=== PATIENT | female | born 1985 | race Caucasian/White ===

== ENCOUNTER 2019-10-25 19:36 | Emergency (ER) | payer BC ==
[~2019-10-25] VITALS: Ht 160 cm; Wt 102.3 kg
[~2019-10-25 19:36] MED LIST: ASPIRIN 81M81 MG/TA2 PO; COREG 6.256.25 MG/TA PO; VASOTEC 5MG5 MG/TAB PO; XANAX .25M0.25 MG/TA PO
[2019-10-25 20:26] LABS: COLLECTION METHOD CLEAN CATCH
[2019-10-25 20:33] LABS: PH 6 (5-8); SQUAMOUS EPITHELIAL 0-2 /hpf; URINE APPEARANCE Clear; URINE BACTERIA None Seen /hpf; URINE BILIRUBIN Negative (NEGATIVE); URINE BLOOD 2+ (NEGATIVE); URINE COLOR Straw; URINE GLUCOSE Negative (NEGATIVE); URINE KETONE Negative (NEGATIVE); URINE LEUKOCYTE ESTERASE Negative (NEGATIVE); URINE NITRATE Negative (NEGATIVE); URINE PROTEIN(semi-quant) Negative (NEGATIVE); URINE RBC 0-2 /hpf; URINE UROBILINOGEN Negative (NEGATIVE)
[2019-10-25 20:56] LABS: BASO # 0.1 (0.0-0.2); BASO % 0.5 % (0.0-2.0); EOS # 0.3 (0.0-0.7); EOS % 2.6 % (0-4.0); GRAN % 74.4 % (42.2-75.2); HEMATOCRIT 44.9 % (37.0-47.0); HEMOGLOBIN 15.2 g/dl (12.5-16.0); LYMPH % 16.4 % (20.0-51.0); MEAN CELL VOLUME 84 fl (80.0-100.0); MEAN CORPUSCULAR HEMOGLOBIN 28 pg (27.0-31.0); MEAN CORPUSCULAR HGB CONC 34 g/dl (33.0-37.0); MEAN PLATELET VOLUME 9.5 fl (7.4-10.4); MONO # 0.7 (0.1-0.6); MONO % 5.7 % (1.7-9.3); PLATELET COUNT 313 K/mm3 (130-400); RED BLOOD COUNT 5.37 M/mm3 (4.10-5.30); REDCELL DISTRIBUTION WIDTH-CV 13.2 % (11.5-14.5)
[2019-10-25 21:07] LABS: ALANINE AMINOTRANSFERASE 20 U/L (4-34); ALBUMIN 4.6 gm/dL (3.5-5.0); ALKALINE PHOSPHATASE 85 U/L (50-136); ANION GAP 9 mmol/L (7-16); AST,SGOT 26 U/L (15-37); BILIRUBIN,TOTAL 0.6 mg/dL (0.0-1.0); BLOOD UREA NITROGEN 11 mg/dL (7-17); CALCIUM 9.7 mg/dL (8.4-10.2); CARBON DIOXIDE 27 mmol/L (22-30); CHLORIDE 101 mmol/L (98-107); CREATININE, serum 0.67 (0.52-1.25); GLUCOSE 112 mg/dL (74-106); POTASSIUM 3.9 mmol/L (3.4-5.0); SODIUM 138 mmol/L (137-145); TOTAL PROTEIN 8.5 gm/dL (6.4-8.2)
[2019-10-25 21:34] LABS: TROPONIN-I < 0.012 ng/mL (0.000-0.035)
[2019-10-25] MEDS ORDERED: COREG 25MG25 MG/TAB PO (22:02)
[2019-10-25] MEDS ORDERED: VASOTEC 10M10 MG/TAB PO (22:03)
[2019-10-25] MEDS ORDERED: NORVASC 5MG5 MG/TAB PO (23:31)
[2019-10-25 23:47] VITALS: BP 141/85; PULSE 82; TEMP 97.6
== END 2019-10-25 23:50 | disposition home or self-care (01) ==
LOC: COL.ER 19:36
PROVIDERS: Emergency Medicine
DX: I10 Essential (primary) hypertension (principal); I42.9 Cardiomyopathy, unspecified; Z79.82 Long term (current) use of aspirin